=== PATIENT | female | born 1980 | race Caucasian/White ===

== ENCOUNTER 2024-07-31 15:12 | Emergency (ER) | payer BC, SELFPAY ==
[2024-07-31 15:17] VITALS: BP 124/91
[2024-07-31 15:56] LABS: % Basophils 0.3 % (0-2); % Eosinophils 0.4 % (0-6); % Immature Granulocytes 0.1 % (0-0.5); % Lymphocytes 9.2 % (20.5-51.1); % Monocytes 3.6 % (1.7-9.3); % Neutrophils 86.4 % (42.2-75.2); Absolute Lymphocytes 0.6 10^3/uL (1.2-3.4); Absolute Monocytes 0.2 10^3/uL (0.1-0.6); Absolute Neutrophils 5.8 10^3/uL (1.4-6.5); Hematocrit 39.1 % (37.0-47.0); Hemoglobin 14.1 g/dL (12.0-16.0); Mean Corp Hgb Conc. 36.1 g/dL (33.0-37.0); Mean Corpuscular Hgb 32.5 pg (27.0-31.0); Mean Corpuscular Volume 90.1 fL (81.0-99.0); Mean Platelet Volume 11.6 fL (7.4-10.4); Nucleated Red Blood Cells % 0 %; Platelet Count 184 10^3/uL (130-400); Red Blood Cell Count 4.34 10^6/uL (4.20-5.40); Red Cell Dist. Width 12.5 % (11.5-14.5); White Blood Cell Count 6.7 10^3/uL (4.8-10.8)
--- NOTE | 2024-07-31 15:56 | ED.GENMED ---
History of Present Illness
General
Chief Complaint: Abdominal Pain
Source: patient
Exam Limitations: none
Time Seen by Provider: 07/31/24 15:56
Nursing documentation reviewed up to this point in time: agreed with
History of Present Illness
History of Present Illness:
This is a 43-year-old female with past medical history of renal stones, anxiety, who presents emergency department today with concerns of left-sided abdominal pain starting at around 3 AM this morning. Patient reports that she has had this pain on
and off for many months now but reports that it is never been this severe before. She reports that she feels it underneath her left rib cage and states that radiates down to her left lower quadrant. She has associated nausea as well but has had no
vomiting. She denies any fevers or chills. She has not taken anything for pain. She does have a history of kidney stones but states that this feels different and she has no pain in her flank. She denies any burning with urination, any fevers or
chills. Patient states that she feels like since the pain will relieve a bit with a bowel movement. Patient states that she takes daily Colace for constipation and states that her bowel movements have been normal for her recently. She denies any
trauma to abdominal wall. She denies any dark tarry stools, any rectal bleeding.
Past History
Past History
ED Past Medical History: None
ED Past Surgical History: and Urological (Lithotripsy)
Social History
Tobacco: Non-smoker
Alcohol: Occasional
Drug: None
Personal:
Living: with family
Family History
Family History: Negative Diabetes, Hypertension, Early CAD, Asthma or Cancer
Review of Systems
Review of Systems
All Other Systems: ROS reviewed and negative except as documented in HPI and ROS
Phy Exam
Physical Exam
Physical Exam:
General: Patient is well appearing and in no acute distress; non-toxic
Skin: Warm and dry, no rashes or lesions
Head: Normocephalic, atraumatic
Eyes: Sclera non-icteric. EOMs intact.
Cardiac: Regular rate and rhythm, no murmurs, no tenderness palpation of external chest wall
Peripheral Vascular: No lower extremity swelling or edema
Pulm: Normal respiratory effort, no wheezes, rales, rhonchi
Abdomen: Generalized left-sided abdominal tenderness to palpation
Neuro: CN II-XII intact, no focal neurologic deficits.
Psychiatric: Appropriate mood and affect.
Course
Orders/Labs/Results
Orders:
Orders
07/31/24 15:21
Test Result ONCE
07/31/24 15:38
Complete Blood Count/With Diff Urgent
Comprehensive Metabolic Panel Urgent
HCG, Serum Qualitative Screen Urgent
Lipase Urgent
Urinalysis Reflex To Culture Urgent
Date Specimen was Collected: 07/31/24
Time Specimen was Collected: 15:21
07/31/24 16:37
CT Abd/pelvis W Iv Cont Urgent
Comment:
Reason For Exam: left sided abdominal pain
0.9% Sodium Chloride 1000 ml [Nss] 1,000 ml IV BOLUS
Ketorolac [Toradol] 15 mg IV NOW STA
Ondansetron Injectable [Zofran] 4 mg IV NOW STA
07/31/24 16:38
Electrocardiogram (*1) Urgent
Reason for Study: Tachycardia
EKG- Treatment ONCE
07/31/24 19:06
Vital Signs- Treatment ONCE
Frequency: Once
Abnormal Lab Results
07/31/24
15:38
MCH 32.5 H pg
(27.0-31.0)
MPV 11.6 H fL
(7.4-10.4)
Absolute Lymphs (auto) 0.6 L 10^3/uL
(1.2-3.4)
Neutrophils % 86.4 H %
(42.2-75.2)
Lymphocytes % 9.2 L %
(20.5-51.1)
Glucose 119 H mg/dl
(70-99)
07/31/24 15:38
07/31/24 15:38
Vital Signs
Initial and Last Documented VS:
Initial Vital Signs
Temp Pulse Resp BP Pulse Ox
98.9 F 117 18 124/91 99
07/31/24 15:17 07/31/24 15:17 07/31/24 15:17 07/31/24 15:17 07/31/24 15:17
Last Documented Vital Signs
Temp Pulse Resp BP Pulse Ox
98.9 F 75 18 95/57 97
07/31/24 15:17 07/31/24 19:00 07/31/24 19:00 07/31/24 19:00 07/31/24 16:00
MDM/Problems Addressed
Differential Diagnosis Includes:
ddx include diverticulitis, constipation, colitis, gastritis,
MDM/Problems Addressed:
43-year-old female presents emergency department with concerns of left-sided abdominal pain that started around 3 AM this morning. Patient states that she has had similar pain the past few months but is never been this sharp before. She also has
associated nausea. She denies any fevers or chills. Physical exam she is well-appearing in no acute distress she had some tachycardia initially that resolved without intervention. She is given medication for pain and nausea which did help. She
is also given a bag of IV fluids. Her CAT scan reveals mild splenomegaly. This seems to be exactly where patient's pain is on physical exam. Of note, her children were recently sick with a viral illness. Did recommend follow-up with her primary
care provider and potentially getting ultrasound in a few weeks for reassessment. Patient expressed understanding. Reviewed case with my attending Dr. Novak who saw patient. Patient stable for discharge.
*Critical Care Note
Total Time (30-74mins, 75-104mins- exclusive of procedures): Not Applicable
Update Note
Update Note:
7:32 pm-- Patient rates her pain
ED Attending Note
-
Portions of this chart may have been created with voice recognition software.� Occasional wrong word or��sound alike� substitutions may have occurred due to the inherent limitations of voice recognition software.
Discharge Plan
Departure
Patient Disposition: Home (Routine Discharge)
Date of Disposition: 07/31/24
Time of Disposition: 19:38
Patient with high blood pressure during this ER visit?: No
Condition: Good
Discharge Problem:
Abdominal pain
Instructions: Splenectomy, Abdominal Pain
Referrals:
Manda Caban, [Family Provider] -
Activity Restrictions/Additional Instructions:
Please follow-up with your primary care provider regarding a mild splenomegaly. This may be due to a virus. This should resolve on its own. You may need additional ultrasound reevaluation in few weeks.
You can take Tylenol and Motrin as needed for pain.
PLEASE RETURN TO EMERGENCY DEPARTMENT SHOULD YOU DEVELOP AN ACUTE WORSENING OF YOUR SYMPTOMS, INTRACTABLE NAUSEA VOMITING, FEVERS OR CHILLS, CHEST PAIN, SHORTNESS OF BREATH, OR ANY OTHER SIGNS OR SYMPTOMS WORRISOME TO YOU.
Interventions
Interventions:
*Risk Screen - Suicide Last Done: 07/31/24 15:17
*General Assessment Last Done: 07/31/24 15:17
*Neglect/Abuse Screening Last Done: 07/31/24 15:17
*ED- Fall Risk Assessment Last Done: 07/31/24 16:45
*ED COVID-19 Vaccine History Last Done: 07/31/24 15:17
*Nursing Disposition Last Done: 07/31/24 20:19
XN[facility]vijqj[facility] Assessment Last Done: 07/31/24 17:00
Discharge Date and Time
Discharge Date/Time: 07/31/24 20:19
Print Language: [id number]
[2024-07-31 16:00] VITALS: BP 132/81
[2024-07-31 16:01] LABS: Urine Albumin Negative (Neg - Trace); Urine Bilirubin Negative (Negative); Urine Character Clear (Clear); Urine Color Yellow; Urine Glucose Negative (Negative); Urine Ketone Negative (Negative); Urine Leukocyte Negative (Negative); Urine Nitrite Negative (Negative); Urine Occult Blood Negative (Negative); Urine Urobilinogen Negative (Neg - 1+)
[2024-07-31 16:06] LABS: HCG, Serum Qualitative Screen Negative
[2024-07-31 16:09] LABS: ALT (SGPT) 17 U/L (0-35); AST (SGOT) 24 U/L (14-36); Albumin 3.9 g/dl (3.5-5.0); Alkaline Phosphatase 74 U/L (38-126); Blood Urea Nitrogen 14 mg/dl (7-17); Calcium 9.4 mg/dl (8.4-10.2); Carbon Dioxide 29 mmol/L (22-30); Chloride 102 mmol/L (98-107); Glucose 119 mg/dl (70-99); Lipase 88 U/L (23-300); Sodium 136 mmol/L (135-145); Total Bilirubin 0.9 mg/dl (0.2-1.3); Total Protein 6.9 g/dl (6.3-8.2); eGFR > 60.00
[2024-07-31 16:44] VITALS: BMI 34.5
[2024-07-31] MEDS: ZOFRAN 4 MG IV (17:08)
[2024-07-31] MEDS: TORADOL 15 MG IV (17:08)
[2024-07-31] MEDS: NSS 1000 IV (17:09)
[2024-07-31 18:00] VITALS: BP 95/57
[2024-07-31 19:00] VITALS: BP 95/57
== END 2024-07-31 20:19 | disposition home or self-care (01) ==
LOC: EMR 15:12
PROVIDERS: Emergency Medicine; EMERGENCY PHYSICIAN Emergency Medicine; FAMILY PHYSICIAN Family Medicine
DX: R10.9 Unspecified abdominal pain (principal); R11.0 Nausea; R16.1 Splenomegaly, not elsewhere classified
CPT/HCPCS: 96374; 96375; 96361; 99284; 74177; 80053; 81003; 83690; 84703; 85025; 93005; Q9967